=== PATIENT | male | born 1965 | race Caucasian/White ===

== ENCOUNTER 2017-11-17 19:09 | Emergency (ER) | payer BC ==
[~2017-11-17] VITALS: Ht 172.7 cm; Wt 68.0 kg
[2017-11-17 20:44] VITALS: BP 134/86
== END 2017-11-17 20:49 | disposition home or self-care (01) ==
LOC: ER 19:13
DX: T16.1XXA Foreign body in right ear, initial encounter (principal); X58.XXXA Exposure to other specified factors, initial encounter; Y93.89 Activity, other specified; Y92.89 Other specified places as the place of occurrence of the external cause; Y99.8 Other external cause status
CPT/HCPCS: 99281; A4606; Z7610; Z7502